=== PATIENT | female | born 1990 | race Two or more races ===

== ENCOUNTER 2018-11-11 10:39 | Inpatient (IN) | payer SELFPAY ==
[2018-11-11] MEDS ORDERED: Water For Irrigation,Sterile 1,000 ML Container IRR PRN (11:14)
[2018-11-11] MEDS ORDERED: Terbutaline 1 MG/ML SDV SUBCUT PRN (11:14)
[2018-11-11] MEDS ORDERED: Carboprost Tromethamine 250 MCG/1 ML Amp IM PRN (11:14)
[2018-11-11] MEDS ORDERED: Sodium Chloride 0.9% 10 ML Syringe FLUSH PRN (11:14)
[2018-11-11] MEDS ORDERED: Ondansetron 4 MG/2 ML SDV IVPUSH PRN (11:14)
[2018-11-11] MEDS ORDERED: Sodium Chloride 0.9% 10 ML SDV IV PRN (11:14)
[2018-11-11] MEDS ORDERED: Misoprostol 200 MCG Tab PO PRN (11:14)
[2018-11-11] MEDS ORDERED: Tranexamic Acid 1,000 MG in Sodium Chloride 0.9% 100 ML IV PRN (11:14)
[2018-11-11] MEDS ORDERED: Nalbuphine 10 MG/1 ML Vial IVPUSH PRN (11:14)
[2018-11-11] MEDS ORDERED: Misoprostol 25 MCG (1/4 of 100 MCG) Tab VAG PRN ×2 (11:14)
[2018-11-11] MEDS ORDERED: Butorphanol 1 MG/ML SDV IVPUSH PRN (11:14)
[2018-11-11] MEDS ORDERED: Methylergonovine 0.2 MG/1 ML Amp IM PRN (11:14)
[2018-11-11] MEDS ORDERED: Lidocaine 1% 50 ML MDV INJECT PRN (11:14)
[2018-11-11] MEDS ORDERED: Oxytocin/0.9 % Sodium Chloride 30 UNIT/500 ML BAG IV SCH ×2 (11:15)
[2018-11-11] MEDS: Lactated Ringers 1,000 ML IV SCH ×2 (20:32→23:34)
[2018-11-12] MEDS: Lactated Ringers 1,000 ML IV SCH ×2 (02:24→06:28)
--- NOTE | 2018-11-12 06:13 | PCM.PREANE ---
Preanesthetic Assessment - Anesthesia/Transfusion/Family Hx Anesthesia History: No Prior Anesthesia Family History of Anesthesia Reaction: No - Review of Systems General: No Symptoms Pulmonary: No Symptoms Cardiovascular: No Symptoms Gastrointestinal: No Symptoms Neurological: No Symptoms Other: Reports: None - Physical Assessment NPO Status Date: 11/12/18 NPO Status Time: 05:00 Height: 1.8 m Weight: 114.305 kg ASA Class: 2E Mental Status: Alert & Oriented x3 Airway Class: Mallampati = 3 Dentition: Reports: Normal Dentition Thyro-Mental Finger Breadths: 3 Mouth Opening Finger Breadths: 3 ROM/Head Extension: Full Lungs: Clear to Auscultation, Normal Respiratory Effort Cardiovascular: Regular Rate, Regular Rhythm - Lab Values: Laboratory Last Values WBC 10.09 K/uL (4.0-11.0) 11/11/18 11:38 RBC 4.15 M/uL (4.30-5.90) L 11/11/18 11:38 Hgb 13.2 g/dL (12.0-16.0) 11/11/18 11:38 Hct 39.4 % (36.0-46.0) 11/11/18 11:38 MCV 94.9 fL (80.0-98.0) 11/11/18 11:38 MCH 31.8 pg (27.0-32.0) 11/11/18 11:38 MCHC 33.5 g/dL (31.0-37.0) 11/11/18 11:38 RDW Std Deviation 46.8 fl (28.0-62.0) 11/11/18 11:38 RDW Coeff of Perez 14 % (11.0-15.0) 11/11/18 11:38 Plt Count 223 K/uL (150-400) 11/11/18 11:38 MPV 11.20 fL (7.40-12.00) 11/11/18 11:38 Nucleated RBC % 0.0 /100WBC 11/11/18 11:38 Nucleated RBCs # 0 K/uL 11/11/18 11:38 Blood Type O POSITIVE 11/11/18 11:38 Antibody Screen NEGATIVE 11/11/18 11:38 - Allergies Allergies/Adverse Reactions: Allergies Allergy/AdvReac Type Severity Reaction Status Date / Time No Known Allergies Allergy Verified 11/11/18 11:10 - Acknowledgements Anesthesia Type Planned: Epidural (risks and benefits discussed, with emphasis on postdural puncture headache, and back pain. ) PreAnesthesia Questionnaire HEENT History: Reports: None Cardiovascular History: Reports: None Respiratory History: Reports: None Gastrointestinal History: Reports: None Genitourinary History: Reports: UTI, Recurrent LMP (Approximate): Other (See Below) (called for epidural, patient already dilated to 8 cm. received IV boluses throughout the night due to baby's heart rate.) Musculoskeletal History: Reports: None Neurological History: Reports: None Psychiatric History: Reports: None Endocrine/Metabolic History: Reports: Obesity/BMI 30+ - Infectious Disease History Infectious Disease History: Reports: Human Papilloma Virus (HPV) - Past Surgical History Female Surgical History: Reports: None - SUBSTANCE USE Smoking Status *Q: Never Smoker Tobacco Use Within Last Twelve Months: No Second Hand Smoke Exposure: No Recreational Drug Use History: No - HOME MEDS Home Medications: Home Meds Folic Acid/Vit Bcomp,C [B-Complex with Vit C Tablet] 400 mg PO DAILY 11/11/18 [ History] Vits #93/Iron Fum/FA [ Formula Tablet] 1 each PO DAILY [History] - CURRENT (IN HOUSE) MEDS Current Meds: Current Medications Butorphanol Tartrate (Stadol) 1 mg IVPUSH ASDIRECTED PRN PRN Reason: Pain Last Admin: 11/12/18 02:34 Dose: 1 mg Carboprost Tromethamine (Hemabate Ds) 250 mcg IM ASDIRECTED PRN PRN Reason: Post Hemorrhage Lactated Ringer's (Ringers, Lactated) 1,000 mls @ 150 mls/hr IV ASDIRECTED MARINO Last Admin: 11/12/18 02:24 Dose: 150 mls/hr Oxytocin/Sodium Chloride (Oxytocin 30 Unit/500 Ml-Ns) 30 unit in 500 mls @ 999 mls/hr IV TITRATE MARINO Oxytocin/Sodium Chloride (Oxytocin 30 Unit/500 Ml-Ns) 30 unit in 500 mls @ 2 mls/hr IV TITRATE MARINO; Protocol Last Titration: 11/12/18 06:00 Dose: 6 munits/min, 6 mls/hr Tranexamic Acid 1,000 mg/ (Sodium Chloride) 110 mls @ 660 mls/hr IV ONETIME PRN PRN Reason: Bleeding Lidocaine HCl (Xylocaine 1%) 50 ml INJECT ONETIME PRN PRN Reason: Laceration repair Methylergonovine Maleate (Methergine) 0.2 mg IM ASDIRECTED PRN PRN Reason: Post Hemorrhage Misoprostol (Cytotec) 200 mcg PO ONETIME PRN PRN Reason: Post Hemorrhage Misoprostol (Cytotec) 25 mcg VAG ONETIME PRN PRN Reason: Cervical Ripening Last Admin: 11/11/18 11:53 Dose: 25 mcg Misoprostol (Cytotec) 25 mcg VAG Q4H PRN PRN Reason: Cervical Ripening Last Admin: 11/11/18 16:15 Dose: 25 mcg Nalbuphine HCl (Nubain) 10 mg IVPUSH ASDIRECTED PRN PRN Reason: Pain (severe 7-10) Ondansetron HCl (Zofran) 4 mg IVPUSH Q6H PRN PRN Reason: Nausea/Vomiting Sodium Chloride (Saline Flush) 10 ml FLUSH ASDIRECTED PRN PRN Reason: Keep Vein Open Last Admin: 11/11/18 11:40 Dose: 10 ml Sodium Chloride (Normal Saline) 10 ml IV ASDIRECTED PRN PRN Reason: IV Use Sterile Water (Sterile Water For Irrigation) 1,000 ml IRR ASDIRECTED PRN PRN Reason: delivery Terbutaline Sulfate (Brethine) 0.25 mg SUBCUT ASDIRECTED PRN PRN Reason: Tacysystole
[2018-11-12] MEDS ORDERED: Ropivacaine HCl/PF 100 ML ONE (06:24)
[2018-11-12] MEDS ORDERED: Lidocaine 1% 50 ML MDV ONE (10:42)
--- NOTE | 2018-11-12 11:25 | PCM.DEL ---
L & D Note - General Info Date of Service: 11/12/18 Mother's Due Date: 11/06/18 - Delivery Note Labor: Spontaneous, Augmented by Oxytocin Cervical Ripening Method: Misoprostil Delivery Outcome: Livebirth Delivery Method: Spontaneous Vaginal Delivery-Single Presentation: Left Occiput Anterior (KRYSTAL) Anesthesia Type: Epidural Anesthetic: Lidocaine (Xylocaine) 1% Plain Local Anesthetic Volume: 5cc Amniotic Fluid Description: Meconium Stained Episiotomy Type: None Laceration: 2nd Degree Suture type: Other (Monocryl) Suture size: 2-0 Placenta: Spontaneous Cord: 3 Vessels Estimated Blood Loss: 800 Resuscitation Needed: No Score 1 min: 8 Score 5 min: 8 Delivery Comments (Free Text/Narrative):: Live male delivered at 1039am , 8/8 weight 3400g Repaired in layers with monocryl 2.0 methergine given due to increased amount of blood noted at delivery additional bag of pitocin will also be given - General Info Date of Service: 11/12/18 - Patient Data Weight - Most Recent: 114.305 kg Lab Results Last 24 Hours: Laboratory Results - last 24 hr 11/11/18 11/11/18 Range/Units 11:38 11:38 WBC 10.09 (4.0-11.0) K/uL RBC 4.15 L (4.30-5.90) M/uL Hgb 13.2 (12.0-16.0) g/dL Hct 39.4 (36.0-46.0) % MCV 94.9 (80.0-98.0) fL MCH 31.8 (27.0-32.0) pg MCHC 33.5 (31.0-37.0) g/dL RDW Std Deviation 46.8 (28.0-62.0) fl RDW Coeff of Perez 14 (11.0-15.0) % Plt Count 223 (150-400) K/uL MPV 11.20 (7.40-12.00) fL Nucleated RBC % 0.0 /100WBC Nucleated RBCs # 0 K/uL Blood Type O POSITIVE Antibody Screen NEGATIVE Med Orders - Current: Current Medications Butorphanol Tartrate (Stadol) 1 mg IVPUSH ASDIRECTED PRN PRN Reason: Pain Last Admin: 11/12/18 02:34 Dose: 1 mg Carboprost Tromethamine (Hemabate Ds) 250 mcg IM ASDIRECTED PRN PRN Reason: Post Hemorrhage Lactated Ringer's (Ringers, Lactated) 1,000 mls @ 150 mls/hr IV ASDIRECTED MARINO Last Admin: 11/12/18 06:28 Dose: 999 mls/hr Oxytocin/Sodium Chloride (Oxytocin 30 Unit/500 Ml-Ns) 30 unit in 500 mls @ 999 mls/hr IV TITRATE MARINO Last Admin: 11/12/18 11:12 Dose: 500 mls/hr Oxytocin/Sodium Chloride (Oxytocin 30 Unit/500 Ml-Ns) 30 unit in 500 mls @ 2 mls/hr IV TITRATE MARINO; Protocol Last Titration: 11/12/18 10:34 Dose: 999 munits/min, 999 mls/hr Tranexamic Acid 1,000 mg/ (Sodium Chloride) 110 mls @ 660 mls/hr IV ONETIME PRN PRN Reason: Bleeding Lidocaine HCl (Xylocaine 1%) 50 ml INJECT ONETIME PRN PRN Reason: Laceration repair Methylergonovine Maleate (Methergine) 0.2 mg IM ASDIRECTED PRN PRN Reason: Post Hemorrhage Last Admin: 11/12/18 10:48 Dose: 0.2 mg Misoprostol (Cytotec) 200 mcg PO ONETIME PRN PRN Reason: Post Hemorrhage Misoprostol (Cytotec) 25 mcg VAG ONETIME PRN PRN Reason: Cervical Ripening Last Admin: 11/11/18 11:53 Dose: 25 mcg Misoprostol (Cytotec) 25 mcg VAG Q4H PRN PRN Reason: Cervical Ripening Last Admin: 11/11/18 16:15 Dose: 25 mcg Nalbuphine HCl (Nubain) 10 mg IVPUSH ASDIRECTED PRN PRN Reason: Pain (severe 7-10) Ondansetron HCl (Zofran) 4 mg IVPUSH Q6H PRN PRN Reason: Nausea/Vomiting Sodium Chloride (Saline Flush) 10 ml FLUSH ASDIRECTED PRN PRN Reason: Keep Vein Open Last Admin: 11/11/18 11:40 Dose: 10 ml Sodium Chloride (Normal Saline) 10 ml IV ASDIRECTED PRN PRN Reason: IV Use Sterile Water (Sterile Water For Irrigation) 1,000 ml IRR ASDIRECTED PRN PRN Reason: delivery Last Admin: 11/12/18 10:35 Dose: 1,000 ml Terbutaline Sulfate (Brethine) 0.25 mg SUBCUT ASDIRECTED PRN PRN Reason: Tacysystole Discontinued Medications Ropivacaine (Naropin 0.2%) Confirm Administered Dose 100 mls @ as directed .ROUTE .STK-MED ONE Stop: 11/12/18 06:25 Lidocaine HCl (Xylocaine 1%) Confirm Administered Dose 50 ml .ROUTE .STK-MED ONE Stop: 11/12/18 10:43 - Problem List & Annotations (1) Vaginal delivery SNOMED Code(s): 692817718 Code(s): O80 - ENCOUNTER FOR FULL-TERM UNCOMPLICATED DELIVERY Status: Acute Current Visit: Yes - Problem List Review Problem List Initiated/Reviewed/Updated: Yes - My Orders Last 24 Hours: My Active Orders 11/11/18 11:14 Patient Status [ADT] Routine Bedrest Bathroom Privileges [RC] ASDIRECTED Communication Order [RC] ASDIRECTED Notify Provider [RC] PRN Oxygen Therapy [RC] ASDIRECTED Vital Signs [RC] PER UNIT ROUTINE Vital Signs [RC] PER UNIT ROUTINE Butorphanol [Stadol] 1 mg IVPUSH ASDIRECTED PRN Carboprost Tromethamine [Hemabate DS] 250 mcg IM ASDIRECTED PRN Lidocaine 1% [Xylocaine 1%] 50 ml INJECT ONETIME PRN Methylergonovine [Methergine] 0.2 mg IM ASDIRECTED PRN Nalbuphine [Nubain] 10 mg IVPUSH ASDIRECTED PRN Ondansetron [Zofran] 4 mg IVPUSH Q6H PRN Sodium Chloride 0.9% [Normal Saline] 10 ml IV ASDIRECTED PRN Sodium Chloride 0.9% [Saline Flush] 10 ml FLUSH ASDIRECTED PRN Terbutaline [Brethine] 0.25 mg SUBCUT ASDIRECTED PRN Tranexamic Acid [Cyklokapron] 1,000 mg Sodium Chloride 0.9% [Normal Saline] 100 ml IV ONETIME Water For Irrigation,Sterile [Sterile Water for Irrigation] 1,000 ml IRR ASDIRECTED PRN miSOPROStol [Cytotec] 200 mcg PO ONETIME PRN miSOPROStol [Cytotec] 25 mcg VAG ONETIME PRN miSOPROStol [Cytotec] 25 mcg VAG Q4H PRN Scalp Electrode [WOMSER] Per Unit Routine Peripheral IV Insertion Adult [OM.PC] Routine Resuscitation Status Routine 11/11/18 11:15 Lactated Ringers [Ringers, Lactated] 1,000 ml IV ASDIRECTED Oxytocin/0.9 % Sodium Chloride [Oxytocin 30 Unit/500 ML-NS] 30 unit in 500 ml IV TITRATE Oxytocin/0.9 % Sodium Chloride [Oxytocin 30 Unit/500 ML-NS] 30 unit in 500 ml IV TITRATE Medication Administration Instruction [OM.PC] Q3H
[2018-11-12] MEDS ORDERED: Ibuprofen 400 MG Tab PO PRN (11:26)
[2018-11-12] MEDS ORDERED: Benzocaine/Menthol 20%-0.5% Spray 78 GM Cannister TOP PRN (11:26)
[2018-11-12] MEDS ORDERED: Witch Hazel Medicated Pads 40/Jar TOP PRN (11:26)
[2018-11-12] MEDS ORDERED: Bisacodyl 10 MG Supp RECTAL PRN (11:26)
[2018-11-12] MEDS ORDERED: oxyCODONE 5 MG Tab PO PRN (11:26)
[2018-11-12] MEDS ORDERED: Ibuprofen 800 MG Tab PO PRN (11:26)
[2018-11-12] MEDS ORDERED: Docusate Sodium 100 MG Cap PO PRN (11:26)
[2018-11-12] MEDS ORDERED: Acetaminophen 500 MG Tab PO PRN ×2 (11:26)
[2018-11-12] MEDS ORDERED: Lanolin 100% Cream 7 GM Tube TOP PRN (11:26)
--- NOTE | 2018-11-12 19:05 | OR ---
SURGEON: CANDI MCCOLLUM DATE OF PROCEDURE: 11/12/2018 PREOPERATIVE DIAGNOSIS: A 28-year-old G1, P0, at 40 weeks 5 days, admitted for induction of labor secondary to oligohydramnios and late deceleration noted in tracing. POSTOPERATIVE DIAGNOSIS: A 28-year-old G1, P0, at 40 weeks 5 days, admitted for induction of labor secondary to oligohydramnios and late deceleration noted in tracing. PROCEDURE: Normal spontaneous vaginal delivery Repair of second-degree vaginal laceration. ANESTHESIA: Epidural and local anesthesia with lidocaine. ESTIMATED BLOOD LOSS: 800. IV FLUID: Pitocin running. NOTABLE FINDING: A live male delivered at 10:39 a.m. was 8 and 8. Weight was 3400 g, and about 800 mL of blood loss was noted so methergine was given and an additional bag of 30 units in 500 NS will also be given. BRIEF HISTORY: The patient is a 28-year-old G1, P0, who came in for care, postdates surveillance. She was noted to have oligohydramnios on USS and late decelerations on the NST. She was brought in for induction. She received Cytotec x3 doses, then this was followed by CRB balloon. Then, she receiving Pitocin . She made cervical change and became fully dilated. During her labor course ,She also was noted to have some intermittent periods of category 2 heart tracing when she had some minimal variability and late decelerations, which resolved on its own. While on Pitocin, her cervix made change and she became fully dilated. With the patient being fully dilated she was encouraged to push. DESCRIPTION OF PROCEDURE: With good pushing effort, she delivered the head subsequently by the anterior and posterior shoulder. The body of the infant was delivered. was placed on maternal abdomen. Delayed cord clamping was observed. Cord was clamped and cut. Cord blood gases were obtained. Placenta was delivered via controlled cord traction. Some amount of blood came out with the placenta and then the final massage was done and perineum was inspected. She was noted to have a right labia minora laceration which was repaired with 2-0 Monocryl and also a second-degree laceration which was repaired with 2-0 Monocryl. All instrument and pad count were correct x2. Hemostasis was noted. MARIS / TRISTA /[id number] MTDD
--- NOTE | 2018-11-13 10:51 | PCM.PNPP ---
- General Info Date of Service: 11/13/18 Subjective Update: 28yo P1 s/p PPD 1 , ambulating , and tolerating regular diet Functional Status: Reports: Pain Controlled, Tolerating Diet, Ambulating, Urinating - Review of Systems General: Reports: No Symptoms HEENT: Reports: No Symptoms Pulmonary: Reports: No Symptoms Cardiovascular: Reports: No Symptoms Gastrointestinal: Reports: No Symptoms Genitourinary: Reports: No Symptoms Musculoskeletal: Reports: No Symptoms Skin: Reports: No Symptoms Neurological: Reports: No Symptoms Psychiatric: Reports: No Symptoms - General Info Date of Service: 11/13/18 - Patient Data Vital Signs - Most Recent: Last Vital Signs Temp 36.2 C 11/13/18 08:15 Pulse 67 11/13/18 08:15 Resp 20 11/13/18 08:15 BP 121/71 11/13/18 08:15 Pulse Ox 97 11/13/18 08:15 Weight - Most Recent: 114.305 kg Lab Results - Last 24 Hours: Laboratory Results - last 24 hr 11/13/18 Range/Units 05:43 Hgb 9.5 L (12.0-16.0) g/dL Hct 28.8 L (36.0-46.0) % Med Orders - Current: Current Medications Acetaminophen (Tylenol Extra Strength) 500 mg PO Q4H PRN PRN Reason: Pain Acetaminophen (Tylenol Extra Strength) 1,000 mg PO Q4H PRN PRN Reason: Pain Benzocaine/Menthol (Dermoplast Pain Relief 20%-0.5% [place]) 78 gm TOP ASDIRECTED PRN PRN Reason: Perineal Comfort Measure Last Admin: 11/12/18 14:27 Dose: 1 cartridge Bisacodyl (Dulcolax) 10 mg RECTAL ONETIME PRN PRN Reason: Constipation Butorphanol Tartrate (Stadol) 1 mg IVPUSH ASDIRECTED PRN PRN Reason: Pain Last Admin: 11/12/18 02:34 Dose: 1 mg Carboprost Tromethamine (Hemabate Ds) 250 mcg IM ASDIRECTED PRN PRN Reason: Post Hemorrhage Docusate Sodium (Colace) 100 mg PO BID PRN PRN Reason: Constipation Emollient Ointment (Lansinoh Hpa) 0 gm TOP ASDIRECTED PRN PRN Reason: Sore Nipples Lactated Ringer's (Ringers, Lactated) 1,000 mls @ 150 mls/hr IV ASDIRECTED MARINO Last Admin: 11/12/18 06:28 Dose: 999 mls/hr Oxytocin/Sodium Chloride (Oxytocin 30 Unit/500 Ml-Ns) 30 unit in 500 mls @ 999 mls/hr IV TITRATE MARINO Last Admin: 11/12/18 11:12 Dose: 500 mls/hr Oxytocin/Sodium Chloride (Oxytocin 30 Unit/500 Ml-Ns) 30 unit in 500 mls @ 2 mls/hr IV TITRATE [facility]; Protocol Last Titration: 11/12/18 10:34 Dose: 999 munits/min, 999 mls/hr Tranexamic Acid 1,000 mg/ (Sodium Chloride) 110 mls @ 660 mls/hr IV ONETIME PRN PRN Reason: Bleeding Ibuprofen (Motrin) 400 mg PO Q4H PRN PRN Reason: Pain Ibuprofen (Motrin) 800 mg PO Q6H PRN PRN Reason: Pain Lidocaine HCl (Xylocaine 1%) 50 ml INJECT ONETIME PRN PRN Reason: Laceration repair Methylergonovine Maleate (Methergine) 0.2 mg IM ASDIRECTED PRN PRN Reason: Post Hemorrhage Last Admin: 11/12/18 10:48 Dose: 0.2 mg Misoprostol (Cytotec) 200 mcg PO ONETIME PRN PRN Reason: Post Hemorrhage Misoprostol (Cytotec) 25 mcg VAG ONETIME PRN PRN Reason: Cervical Ripening Last Admin: 11/11/18 11:53 Dose: 25 mcg Misoprostol (Cytotec) 25 mcg VAG Q4H PRN PRN Reason: Cervical Ripening Last Admin: 11/11/18 16:15 Dose: 25 mcg Nalbuphine HCl (Nubain) 10 mg IVPUSH ASDIRECTED PRN PRN Reason: Pain (severe 7-10) Ondansetron HCl (Zofran) 4 mg IVPUSH Q6H PRN PRN Reason: Nausea/Vomiting Oxycodone HCl (Oxycodone) 5 mg PO Q2H PRN PRN Reason: Pain Sodium Chloride (Saline Flush) 10 ml FLUSH ASDIRECTED PRN PRN Reason: Keep Vein Open Last Admin: 11/11/18 11:40 Dose: 10 ml Sodium Chloride (Normal Saline) 10 ml IV ASDIRECTED PRN PRN Reason: IV Use Sterile Water (Sterile Water For Irrigation) 1,000 ml IRR ASDIRECTED PRN PRN Reason: delivery Last Admin: 11/12/18 10:35 Dose: 1,000 ml Terbutaline Sulfate (Brethine) 0.25 mg SUBCUT ASDIRECTED PRN PRN Reason: Tacysystole Witch Deborah (Tucks) 1 pad TOP ASDIRECTED PRN PRN Reason: comfort care Last Admin: 11/12/18 14:27 Dose: 1 tub Discontinued Medications Ropivacaine (Naropin 0.2%) Confirm Administered Dose 100 mls @ as directed .ROUTE .STK-MED ONE Stop: 11/12/18 06:25 Last Admin: 11/12/18 22:49 Dose: Not Given Lidocaine HCl (Xylocaine 1%) Confirm Administered Dose 50 ml .ROUTE .STK-MED ONE Stop: 11/12/18 10:43 Last Admin: 11/12/18 22:49 Dose: Not Given - Infant Interaction Support Person: , Mother - Recovery Exam Fundal Tone: Firm Fundal Level: 1 Fingerbreadths Below Umbilicus Fundal Placement: Midline Lochia Amount: Scant, Small Lochia Color: Rubra/Red Episiotomy/Laceration: None Bladder Status: Voiding Urinary Elimination: Voided - Exam General: Alert HEENT: Pupils Equal Neck: Supple Lungs: Clear to Auscultation Cardiovascular: Regular Rate, Regular Rhythm GI/Abdominal Exam: Normal Bowel Sounds Extremities: Normal Inspection Wound/Incisions: Healing Well Neurological: No New Focal Deficit Psy/Mental Status: Alert - Problem List & Annotations (1) Vaginal delivery SNOMED Code(s): 667259674 Code(s): O80 - ENCOUNTER FOR FULL-TERM UNCOMPLICATED DELIVERY Status: Acute Current Visit: Yes - Problem List Review Problem List Initiated/Reviewed/Updated: Yes - My Orders Last 24 Hours: My Active Orders 11/12/18 11:26 Patient Status [ADT] Routine May Shower [RC] ASDIRECTED Up ad Mary [RC] ASDIRECTED Acetaminophen [Tylenol Extra Strength] 1,000 mg PO Q4H PRN Acetaminophen [Tylenol Extra Strength] 500 mg PO Q4H PRN Benzocaine/Menthol [Dermoplast Pain Relief 20%-0.5% [place]] 78 gm TOP ASDIRECTED PRN Bisacodyl [Dulcolax] 10 mg RECTAL ONETIME PRN Docusate Sodium [Colace] 100 mg PO BID PRN Ibuprofen [Motrin] 400 mg PO Q4H PRN Ibuprofen [Motrin] 800 mg PO Q6H PRN Lanolin [Lansinoh HPA] See Dose Instructions TOP ASDIRECTED PRN Witch Deborah [Tucks] 1 pad TOP ASDIRECTED PRN oxyCODONE 5 mg PO Q2H PRN Assess Lochia [WOMSER] Per Unit Routine Assess Uterine Involution [WOMSER] Per Unit Routine Peripheral IV Discontinue [OM.PC] Routine - Assessment Assessment:: 28yo P1 s/p PPD1 ambulating , voiding and tolerating regular diet , normal lochia - Plan Plan:: Routine Discharge home
--- NOTE | 2018-11-14 09:13 | PCM.PNPP ---
- General Info Date of Service: 11/14/18 Subjective Update: 28yo P1 s/p PPD 2 , ambulating , and tolerating regular diet Functional Status: Reports: Pain Controlled, Tolerating Diet, Ambulating, Urinating - Review of Systems General: Reports: No Symptoms HEENT: Reports: No Symptoms Pulmonary: Reports: No Symptoms Cardiovascular: Reports: No Symptoms Gastrointestinal: Reports: No Symptoms Genitourinary: Reports: No Symptoms Musculoskeletal: Reports: No Symptoms Skin: Reports: No Symptoms Neurological: Reports: No Symptoms Psychiatric: Reports: No Symptoms - General Info Date of Service: 11/14/18 - Patient Data Vital Signs - Most Recent: Last Vital Signs Temp 36.6 C 11/14/18 07:44 Pulse 67 11/14/18 07:44 Resp 19 11/14/18 07:44 BP 131/75 11/14/18 07:44 Pulse Ox 95 11/14/18 07:44 Weight - Most Recent: 114.305 kg Med Orders - Current: Current Medications Acetaminophen (Tylenol Extra Strength) 500 mg PO Q4H PRN PRN Reason: Pain Acetaminophen (Tylenol Extra Strength) 1,000 mg PO Q4H PRN PRN Reason: Pain Benzocaine/Menthol (Dermoplast Pain Relief 20%-0.5% [place]) 78 gm TOP ASDIRECTED PRN PRN Reason: Perineal Comfort Measure Last Admin: 11/12/18 14:27 Dose: 1 cartridge Bisacodyl (Dulcolax) 10 mg RECTAL ONETIME PRN PRN Reason: Constipation Butorphanol Tartrate (Stadol) 1 mg IVPUSH ASDIRECTED PRN PRN Reason: Pain Last Admin: 11/12/18 02:34 Dose: 1 mg Carboprost Tromethamine (Hemabate Ds) 250 mcg IM ASDIRECTED PRN PRN Reason: Post Hemorrhage Docusate Sodium (Colace) 100 mg PO BID PRN PRN Reason: Constipation Emollient Ointment (Lansinoh Hpa) 0 gm TOP ASDIRECTED PRN PRN Reason: Sore Nipples Lactated Ringer's (Ringers, Lactated) 1,000 mls @ 150 mls/hr IV ASDIRECTED MARINO Last Admin: 11/12/18 06:28 Dose: 999 mls/hr Oxytocin/Sodium Chloride (Oxytocin 30 Unit/500 Ml-Ns) 30 unit in 500 mls @ 999 mls/hr IV TITRATE MARINO Last Admin: 11/12/18 11:12 Dose: 500 mls/hr Oxytocin/Sodium Chloride (Oxytocin 30 Unit/500 Ml-Ns) 30 unit in 500 mls @ 2 mls/hr IV TITRATE MARINO; Protocol Last Titration: 11/12/18 10:34 Dose: 999 munits/min, 999 mls/hr Tranexamic Acid 1,000 mg/ (Sodium Chloride) 110 mls @ 660 mls/hr IV ONETIME PRN PRN Reason: Bleeding Ibuprofen (Motrin) 400 mg PO Q4H PRN PRN Reason: Pain Ibuprofen (Motrin) 800 mg PO Q6H PRN PRN Reason: Pain Lidocaine HCl (Xylocaine 1%) 50 ml INJECT ONETIME PRN PRN Reason: Laceration repair Methylergonovine Maleate (Methergine) 0.2 mg IM ASDIRECTED PRN PRN Reason: Post Hemorrhage Last Admin: 11/12/18 10:48 Dose: 0.2 mg Misoprostol (Cytotec) 200 mcg PO ONETIME PRN PRN Reason: Post Hemorrhage Misoprostol (Cytotec) 25 mcg VAG ONETIME PRN PRN Reason: Cervical Ripening Last Admin: 11/11/18 11:53 Dose: 25 mcg Misoprostol (Cytotec) 25 mcg VAG Q4H PRN PRN Reason: Cervical Ripening Last Admin: 11/11/18 16:15 Dose: 25 mcg Nalbuphine HCl (Nubain) 10 mg IVPUSH ASDIRECTED PRN PRN Reason: Pain (severe 7-10) Ondansetron HCl (Zofran) 4 mg IVPUSH Q6H PRN PRN Reason: Nausea/Vomiting Oxycodone HCl (Oxycodone) 5 mg PO Q2H PRN PRN Reason: Pain Sodium Chloride (Saline Flush) 10 ml FLUSH ASDIRECTED PRN PRN Reason: Keep Vein Open Last Admin: 11/11/18 11:40 Dose: 10 ml Sodium Chloride (Normal Saline) 10 ml IV ASDIRECTED PRN PRN Reason: IV Use Sterile Water (Sterile Water For Irrigation) 1,000 ml IRR ASDIRECTED PRN PRN Reason: delivery Last Admin: 11/12/18 10:35 Dose: 1,000 ml Terbutaline Sulfate (Brethine) 0.25 mg SUBCUT ASDIRECTED PRN PRN Reason: Tacysystole Witch Deborah (Tucks) 1 pad TOP ASDIRECTED PRN PRN Reason: comfort care Last Admin: 11/12/18 14:27 Dose: 1 tub Discontinued Medications Ropivacaine (Naropin 0.2%) Confirm Administered Dose 100 mls @ as directed .ROUTE .STK-MED ONE Stop: 11/12/18 06:25 Last Admin: 11/12/18 22:49 Dose: Not Given Lidocaine HCl (Xylocaine 1%) Confirm Administered Dose 50 ml .ROUTE .STK-MED ONE Stop: 11/12/18 10:43 Last Admin: 11/12/18 22:49 Dose: Not Given - Interaction Support Person: , Mother - Recovery Exam Fundal Tone: Firm Fundal Level: At Umbilicus Fundal Placement: Midline Lochia Amount: Scant Lochia Color: Rubra/Red Perineum Description: Intact, Minimal Bruising/Swelling Episiotomy/Laceration: Approximated Bladder Status: Voiding Urinary Elimination: Voided - Exam General: Alert HEENT: Pupils Equal Neck: Supple Lungs: Clear to Auscultation Cardiovascular: Regular Rate, Regular Rhythm GI/Abdominal Exam: Normal Bowel Sounds Extremities: Normal Inspection Skin: Warm Psy/Mental Status: Alert - Problem List & Annotations (1) Vaginal delivery SNOMED Code(s): 891294466 Code(s): O80 - ENCOUNTER FOR FULL-TERM UNCOMPLICATED DELIVERY Status: Acute Current Visit: Yes - Problem List Review Problem List Initiated/Reviewed/Updated: Yes - My Orders Last 24 Hours: My Active Orders 11/13/18 10:52 Ready for Discharge [RC] PER UNIT ROUTINE 11/13/18 12:59 Resuscitation Status Routine - Assessment Assessment:: 28yo P1 s/p PPD2 ambulating , voiding and tolerating regular diet , normal lochia - Plan Plan:: Routine Discharge home
== END 2018-11-14 13:10 | disposition home or self-care (01) | DRG 807 ==
LOC: MW.OB 10:39 → OBSVTOIN 11-12 10:39 → MW.OB 11-12 14:37
PROVIDERS: ADMIT Obstetrics & Gynecology; ATTEND Obstetrics & Gynecology
PROC: 10E0XZZ Delivery of Products of Conception, External Approach (ICD-10-PCS; principal; 2018-11-12)
PROC: 0KQM0ZZ Repair Perineum Muscle, Open Approach (ICD-10-PCS; 2018-11-12)
PROC: 0UQMXZZ Repair Vulva, External Approach (ICD-10-PCS; 2018-11-12)
PROC: 3E0R3BZ Introduction of Anesthetic Agent into Spinal Canal, Percutaneous Approach (ICD-10-PCS; 2018-11-12)
DX: O41.03X0 Oligohydramnios, third trimester, not applicable or unspecified (principal); Z37.0 Single live birth; O76 Abnormality in fetal heart rate and rhythm complicating labor and delivery; O77.0 Labor and delivery complicated by meconium in amniotic fluid; O48.0 Post-term pregnancy; Z3A.40 40 weeks gestation of pregnancy; O70.1 Second degree perineal laceration during delivery
CPT/HCPCS: 36415; 59025; 59409; 85014; 85018; 85027; 86850; 86900; 86901; A9270-GY; J0595; J2001; J2210; J2590; J2795; J7120